=== PATIENT | female | born 1995 | race Two or more races ===

== ENCOUNTER 2024-04-24 10:28 | Emergency (ER) | payer MEDICAID, OTHER ==
[~2024-04-24] VITALS: Ht 165.1 cm; Wt 90.9 kg
[2024-04-24 10:28] VITALS: BP 124/87; PULSE 100; RESP 18; O2SAT 100
== END 2024-04-24 10:45 | disposition left against medical advice (07) ==
LOC: ER 10:28
DX: R07.9 Chest pain, unspecified (principal); Z53.21 Procedure and treatment not carried out due to patient leaving prior to being seen by health care provider